=== PATIENT | male | born 1960 | race Caucasian/White ===

== ENCOUNTER 2021-09-19 01:20 | Outpatient (CLI) | payer OTHER, SELFPAY ==
--- NOTE | 2021-09-19 07:45 | DI.MRI_ITS ---
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 Whole brain axial T 1 weighted imaging was also obtained post contrast. COMPARISON: No exams were available for comparison FINDINGS: The ventricular system is normal in appearance. There is no mass lesion or enhancing lesion in the b rain. No significant intracranial signal abnormality seen, apart from scattered areas periventricular white matter signal abnormality consistent mild microvascular ischemic changes.. Diffusion-weighted imaging shows no diffusion restriction to suggest cerebral infarction. Susceptibility weighted imaging shows no evidence of intracranial hemorrhage. The orbital and temporal bone structures appear intact. The pituitary appears intact. There is normal flow void in the khoyov-vp-Aeuzaf vasculature. Imaging of the posterior fossa region shows no abnormality of the cerebellum or peace. The internal auditory canal on the left shows intermediate signal on T1 weighted images and shows enh ancement on post contrast imaging consistent with the suspected acoustic neuroma, the area of enhance ment measures 7 x 3 x 5 millimeters. No additional enhancing lesion identified in the brain or the c erebellopontine angle region. IMPRESSION: Appearance as described above is consistent with an acoustic neuroma in the left internal auditory ca nal, measuring about 7 x 3 x 5 millimeters in diameter. No other significant findings. RADIATION DOSE DELIVERED: Total DLP
[2021-09-19] MEDS: Normal Saline Flush 10 ML SYR IVP (14:13)
[2021-09-19] MEDS: Gadoterate meglumine 20 ML VIAL 15 ML IVP (14:14)
== END 2021-09-19 01:40 ==
PROVIDERS: PCP Internal Medicine; Visit Provider Otolaryngology
DX: D33.3 Benign neoplasm of cranial nerves (principal); H91.20 Sudden idiopathic hearing loss, unspecified ear
CPT/HCPCS: 70553

== ENCOUNTER → 2022-09-27 02:27 | Outpatient (CLI) | payer OTHER, SELFPAY ==
--- NOTE | 2022-09-27 07:00 | DI.MRI_ITS ---
Exam(s) MR IAC BRAIN W EXAM: MR IAC BRAIN W CLINICAL HISTORY: F/U acoustic neuroma,assess for change.D33.3. TECHNIQUE: Multiplanar multisequence MRI of the brain and internal auditory canals was performed. CONTRAST MATERIAL: IV Contrast: 16 mL of Magnevist contrast administered. COMPARISON: MR MR IAC BRAIN WO/W from 09/19/2021 FINDINGS: This is a limited examination centered on the IAC's with pre and postcontrast image performed. The en tire brain was not imaged. VENTRICLES AND EXTRA AXIAL SPACES: Normal in size and morphology for the patient's age. CEREBRAL PARENCHYMA: No intraparenchymal lesion is seen in the visualized portions of the brain. MIDLINE SHIFT: None. BRAINSTEM/CEREBELLUM: Normal. CALVARIUM: Normal. ENHANCEMENT: No suspicious intracranial mass or enhancement is seen. There has been no change in size of the enhancing mass in the left IAC. VISUALIZED PARANASAL SINUSES/MASTOIDS: Clear. PASCUA YAQUI OF LEVI: The visualized portion of the cioztz-gn-Ujzjbs is unremarkable. PITUITARY GLAND: Unremarkable. IAC/CP ANGLE: There is been no change in size of the enhancing mass in the left IAC. It measures 7 x 5 x 3 mm. The cerebellar pontine angles are unremarkable. OTHER FINDINGS: None. IMPRESSION: 1. This is a limited examination of the brain centered on the IAC's. 2. There has been no change in size of the enhancing mass in the left IAC. This is consistent with an acoustic neuroma. DATA REPOSITORY:
[2022-09-27] MEDS: Normal Saline Flush 10 ML SYR IVP (09:01)
== END ==
PROVIDERS: PCP Internal Medicine; Visit Provider Otolaryngology
DX: D33.3 Benign neoplasm of cranial nerves (principal)
CPT/HCPCS: 70552; 82565

== ENCOUNTER → 2023-11-22 00:44 | Outpatient (CLI) | payer OTHER, SELFPAY ==
[2023-11-22 10:17] LABS: CREATININE 0.9 mg/dL (0.70-1.30); Estimated GFR 95.37 (mL/min/1.73m2)
[2023-11-22] MEDS: Normal Saline Flush 10 ML SYR IVP (10:29)
[2023-11-22] MEDS: Gadoterate meglumine 20 ML SYRINGE 16 ML IVP (10:29)
--- NOTE | 2023-11-22 10:50 | DI.MRI_ITS ---
Exam(s) MR IAC BRAIN W EXAM: MR IAC BRAIN W CLINICAL HISTORY: Left acoustic neuroma, assess for change,d33.3. TECHNIQUE: T1 axial and coronal images were performed through the region of the internal auditory ca nals as well as T1 MPrage images of the entire brain were performed following IV Dotarem CONTRAST MATERIAL: IV Contrast: 16 mL of Dotarem contrast administered. COMPARISON: MR MR IAC BRAIN WO/W from 09/19/2021 MR MR IAC BRAIN W from 09/27/2022 FINDINGS: VENTRICLES AND EXTRA AXIAL SPACES: Normal in size and morphology for the patient's age. CEREBRAL PARENCHYMA: No abnormal enhancing lesions.. MIDLINE SHIFT: None. BRAINSTEM/CEREBELLUM: Normal. CALVARIUM: Normal. VISUALIZED PARANASAL SINUSES/MASTOIDS: Clear. ORBITS: Unremarkable. IAC/CP ANGLE: There has been no change in size or appearance of the previously noted ovoid enhancing mass in the left internal auditory canal. It again measures 7 x 5 x 3 millimeters. No new abnormali ties are identified in either IAC. OTHER FINDINGS: None. IMPRESSION: Stable size and appearance of left acoustic neuroma.. DATA REPOSITORY:
== END ==
PROVIDERS: Registered Nurse Maternal Newborn; PCP Family Medicine; Visit Provider Otolaryngology
DX: H90.42 Sensorineural hearing loss, unilateral, left ear, with unrestricted hearing on the contralateral side (principal); D33.3 Benign neoplasm of cranial nerves
CPT/HCPCS: 70552; 82565